=== PATIENT | female | born 1985 | race Caucasian/White ===

== ENCOUNTER 2019-12-27 09:57 | Emergency (ER) | payer OTHER ==
[~2019-12-27] VITALS: Ht 162.6 cm; Wt 83.9 kg
[2019-12-27] MEDS ORDERED: ZOFRAN ODT4 MG PO (12:28)
[2019-12-27] MEDS ORDERED: GUAIFEN-CODEINE10 ML PO (12:28)
[2019-12-27 12:34] VITALS: BP 108/60
--- NOTE | 2020-01-07 12:15 | EKG ---
[facility] [place] [address] ELECTROCARDIOGRAM REPORT Name: YOAN GALDAMEZ Room #: DEP [facility]#: [id number] Admission: 12/27/19 Attend Phys: Discharge: 12/27/19 Date of : 87 Report #: [id number] THIS REPORT FOR: cc: FAM - Family physician unknown FAM - Family physician unknown Spike Houston MD [facility] ~ THIS REPORT FOR: //name// [facility] ED Test Date: 2019-12-27 Test Time: 10:58:34 Pat Name: YOAN CORTES Department: Room: Gender: F Machine Operator: [facility] : 1985 Requested By: Risa Miller Order Number: [id number] MD: Spike Houston Measurements Intervals [place] Rate: 87 P: 2 MN: 188 QRS: 33 QRSD: 95 T: 17 QT: 324 QTc: 388 Interpretive Statements Sinus rhythm Nonspecific ST segment abnormality No previous ECG available for comparison Electronically Signed On 12-28-2019 8:52:40 CDT by Spike Houston [email or web address] <ELECTRONICALLY SIGNED> By: Spike Houston MD, FAC 12/28/19 [id number] Spike Houston MD, [facility] /EPI
== END 2019-12-27 12:34 | disposition home or self-care (01) ==
LOC: ER 09:57
DX: J06.9 Acute upper respiratory infection, unspecified (principal); R11.2 Nausea with vomiting, unspecified; F17.210 Nicotine dependence, cigarettes, uncomplicated; Z20.828 Contact with and (suspected) exposure to other viral communicable diseases; Z90.49 Acquired absence of other specified parts of digestive tract; Z98.890 Other specified postprocedural states